=== PATIENT | female | born 1990 | race Caucasian/White ===

== ENCOUNTER 2020-09-08 11:41 | Emergency (ER) | payer OTHER, MEDICAID ==
[~2020-09-08] VITALS: Ht 165.1 cm; Wt 68.2 kg
[2020-09-08 11:43] VITALS: Ht 165.1 cm; Wt 68.2 kg
[2020-09-08] MEDS ORDERED: ATIVAN1 MG PO (11:46)
[2020-09-08] MEDS ORDERED: ZOFRAN4 MG PO (11:46)
[2020-09-08] MEDS ORDERED: PROZAC10 MG PO (11:46)
[2020-09-08 12:23] LABS: BASOPHILS 0.3 % (0-2); EOSINOPHILS 0.6 % (0-7); HEMOGLOBIN 14.3 g/dL (12-16); IMMATURE GRANULOCYTES 0.1 % (0-5); LYMPHOCYTE ABS# 1.72 10x3/uL (1.18-3.74); LYMPHOCYTES 24.1 % (15-50); MCHC 33.3 g/dL (31.0-37.0); MCV 84.1 fL (80.0-100.0); MEAN PLATELET VOLUME 9.7 fL (7.4-10.4); MONOCYTES 7.2 % (2-11); NEUTROPHIL ABS# 4.83 10x3/uL (1.56-6.13); NEUTROPHILS 67.7 % (40-80); PLATELET COUNT 202 10x3/uL (130-400); RBC 5.11 10x6/uL (4.00-5.40); RDW 13.8 % (11.5-14.5); WBC 7.1 10x3/uL (4.8-10.8)
[2020-09-08 12:30] LABS: ANION GAP 13.7 mmol/L (8-16); CARBON DIOXIDE 27.4 mmol/L (21.0-32.0); CREATININE - SERUM 1.1 mg/dL (0.6-1.3); POTASSIUM - SERUM 4.1 mmol/L (3.5-5.1)
[2020-09-08 12:37] LABS: ALBUMIN 3.7 g/dL (3.4-5.0); BILIRUBIN - TOTAL 0.31 mg/dL (0.2-1.3); PROTEIN - SERUM 7.1 g/dL (6.4-8.2)
[2020-09-08 12:39] LABS: HCG SERUM NEGATIVE (NEGATIVE)
[2020-09-08] MEDS ORDERED: REGLAN5 MG PO (13:55)
[2020-09-08] MEDS ORDERED: BENTYL10 MG PO (13:55)
[2020-09-08 14:14] LABS: BILIRUBIN NEGATIVE (NEGATIVE); KETONE MODERATE mg/dL (NEGATIVE); NITRITE NEGATIVE (NEGATIVE); UROBILINOGEN NORMAL mg/dL (< 2)
[2020-09-08 14:18] LABS: BACTERIA FEW HPF (NONE SEEN); SQUAMOUS EPITHELIAL 0-5 HPF (0-4); WHITE CELLS - URINE 3 HPF (0-4)
[2020-09-08 14:42] VITALS: BP 105/72
== END 2020-09-08 14:42 | disposition home or self-care (01) ==
LOC: D.ER 11:41
PROVIDERS: Family Medicine
DX: R10.9 Unspecified abdominal pain (principal); E86.0 Dehydration; R11.2 Nausea with vomiting, unspecified